=== PATIENT | male | born 1985 | race Caucasian/White ===

== ENCOUNTER 2018-01-17 18:02 | Emergency (ER) | payer BC, SELFPAY ==
--- OUTSIDE RECORDS SUMMARY | 2018-01-17 18:03 | XMS REPORT | Encounter Summary ---
:1985 Author Reason for Visit Medical Complaint Instructions 1. Influenza-like symptoms Bromfed DM 2 mg-30 mg-10 mg/5 mL syrup rapid flu (A+B) Medrol (Jemal) 4 mg tablets in a dose pack 2. Pain in throat sore throat: care instructions rapid strep group A, throat 3. Body mass index 30+ - obesity Discussion Note Pt is in NAD; Verbalizes understanding of all instructions with no questions at this time. Plan of Care Patient Instructions Take fluticasone (flonase) as needed for congestion. [place] Var[place] one spray in each nostril twice a day. Take a warm, steamy shower, blow your nose thereafter, and spray in each nostril. Tilt your head up for about 10 seconds and breath through your mouth. Do not sniff or snort the medication in or else the medication will go to your throat and not be absorbed appropriately. Take Bromfed DM for cough as dire cted. Alternate with Ibuprofen and acetaminophen every 4hrs as needed for pain/ fever/headache. Take steroid taper as directed and with food to avoid heartburn. Proper hydration and rest. Return to work/ school if free of fever for 24-hrs. Do not share any utensils/cups, no kissing , recommend hand washing after coughing/sneezing/blowing nose and cover face when you do so. Take medications as prescribed. Follow up with your PCP within 2-3 days if symptoms worsen as discussed. Reminders Provider Appointments None recorded. Lab Rapid Flu 09/16/2017 [facility] (A+B) Rapid Strep 09/16/2017 [facility] Group a, Throat Referral None recorded. Procedures None recorded. Surgeries None recorded. Imaging None recorded. Medications Name Start Date Bromfed DM 2 mg-30 mg-10 mg/5 mL syrup Take 10 mL every 4-6 hours by oral route as needed for 6 days. Medrol (Jemal) 4 mg tablets in a dose pack Take PO as directed Take with food Medications Administered None recorded. Vitals Height Weight BMI Blood Pressure 5 ft 9 in 241 lbs 35.6 kg/m2 102/70 mm[Hg] Lab Results Date Name Specimen Result Interpretation Description Value Range Status Address Rapid Strep Result negative [facility]: Group a, 9 [place] [facility] Swab Location Left and Right [facility] Rapid Flu Influenza a negative [facility]: (A+B) 9 [facility] Influenza B negative [facility]: 9 [facility] Allergies Code Code System Name Reaction Severity Status Onset NKDA Problems Name Status Onset Date Source Hyperlipidemia Active 09/16/2017 Body Mass Index 30+ - Obesity Active 09/16/2017 Pain in Throat Active 09/16/2017 Influenza-like Symptoms Active 09/16/2017 Procedures Date Name Performed by Tonsillectomy Information not available Vaccine List Vaccine Type influenza, unspecified formulation 03/25/2017 Tdap 06/25/2015 Social History Smoking Status Never Smoker Past Encounters 09/16/2017 Influenza-like Symptoms; Pain in Throat; Body Mass Index 30+ - Obesity Cherelle Avina, [facility]: [address] [place] [address], Ph. History of Present Illness [id number] Reported By: Patient HPI: Quality: cannot identify. Duration: 7 days. Severity: subjective temperature. Context: no ill contacts, no tick/insect bites, no recent travel, no new medications. Associated Symptoms: no fever/chills, no headache, no muscle aches, no rash, no lethargy, cough, nasal passage blockage (stuffiness), nasal discharge; sore throat, chest congestion, body aches, and feeling feverish. Modifying Factors nothing gives relief Review of Systems: ROS as noted in the HPI Review of Systems Basic Reported By: Patient Physical Exam Adult Basic, Adult Male Complete Reported By: Patient Constitutional: General Appearance: obese. Level of Distress: NAD. Ambulation: ambulating normally Psychiatric: Mental Status: active and alert. Orientation: to time, to place, to person Eyes: Lids and Conjunctivae: non-injected, no discharge, no pallor. Pupils: PERRLA. Corneas: grossly intact. EOM: EOMI. Lens: clear. Vision: peripheral vision grossly intact Irh-Jzoh-Ixggw-Throat: Ears: no lesions on external ear, no outer ear tenderness, EACs clear, TMs clear. Hearing: no hearing loss. Nose: no lesions on external nose, nares patent, no septal deviation, nasal passages clear, no sinus tenderness, nasal discharge--rhinorrhea, post nasal drip; B/L NTs pink and edematous. Lips, Teeth, and Gums: no mouth or lip ulcers, no bleeding gums, normal dentition. Oropharynx: moist mucous membranes, no erythema, no exudates, tonsils absent Neck: Neck: supple. Lymph Nodes: no cervical LAD Lungs: Respiratory effort: no dyspnea, no tachypnea, no use of accessory muscles, no intercostal retractions. Auscultation: breath sounds normal, good air movement Cardiovascular: Heart Auscultation: RRR, no murmurs Neurologic: Gait and Station: normal gait, normal station. Cranial Nerves: grossly intact
--- OUTSIDE RECORDS SUMMARY | 2018-01-17 18:03 | XMS REPORT | Continuity of Care Document ---
:1985 Author Organization Interface Problems Problem Status Onset Classification Date Comments Source Date Reported Body mass index 09/17/19 Diagnosis 09/16/2017 [facility] 30+ - obesity 18 Pain in throat 09/17/19 Diagnosis 09/16/2017 [facility] 18 Influenza-like 09/17/19 Diagnosis 09/16/2017 [facility] symptoms 18 Hyperlipidemia 09/17/19 Problem 09/16/2017 [facility] 18 Body Mass Index 09/17/19 Problem 09/16/2017 [facility] 30+ - Obesity 18 Pain in Throat 09/17/19 Problem 09/16/2017 [facility] 18 Influenza-like 09/17/19 Problem 09/16/2017 [facility] Symptoms 18 Medications Medication Details Route Status Patient Ordering Order Source Instructions Provider Date Brompheniramine Bromfed Active [facility] Maleate 0.4 MG/ML DM 2 / Dextromethorphan mg-30 Hydrobromide 2 mg-10 MG/ML / mg/5 mL Pseudoephedrine syrup Hydrochloride 6 Take 10 MG/ML Oral mL every Solution [Bromfed 4-6 hours DM] by oral route as needed for 6 days. Allergies, Adverse Reactions, Alerts Substance Category Reaction Severity Reaction Status Date Comments Source type Reported Immunizations Immunization Date Given Site Status Last Comments Source Updated influenza, 03/25/2017 completed [facility] unspecified formulation Tdap 06/25/2015 completed [facility] Results Order Results Value Reference Date Interpretation Comments Source Name Range RESULT negative 09/16/ [facility] 2018 SWAB Left and 09/16/ [facility] LOCATION Right 2018 tonsillar pillars Influenza A negative 09/16/ [facility] 2017 Influenza B negative 09/16/ [facility] 2017 Vital Signs Vital Sign Value Date Comments Source Diastolic (mm Hg) 70 09/16/2017 [facility] Height 69 09/16/2017 [facility] Systolic (mm Hg) 102 09/16/2017 [facility] Weight 241 09/16/2017 [facility] Encounters Location Location Encounter Encounter Reason Attending ADM DC Status Source Details Type Number For Provider Date Date Visit NHI Kaela Cherelle [id number] Cherelle 09/16 [facility] Avina, [id number] Fabrice - SYSTEM ADMINISTRATION MANAGER-C: [id number] [id number], [place] [address] , Ph. Procedures Procedure Code Date Perfomer Comments Source Tonsillectomy [facility]
[2018-01-17] MEDS ORDERED: ONDANSETRON 4 MG/2 ML VIAL ONE (18:52)
[2018-01-17] MEDS ORDERED: NA CHLORIDE 0.9% 1,000 ML ONE (18:52)
[2018-01-17] MEDS ORDERED: KETOROLAC 30 MG/ML INJ ONE (18:52)
--- NOTE | 2018-01-17 19:03 | RAD REPORT ---
EXAM DESCRIPTION: CT - Stone Protocol - 01/17/2018 6:55 pm CLINICAL HISTORY: Flank pain. Left flank pain COMPARISON: No comparisons TECHNIQUE: Axial images were obtained without oral or IV contrast. Lack of contrast limits solid org an and vascular assessment. The [id number] spans the entirety of the system partially obscuring uppermost abdomen and lung bases. Coronal reformatted images were obtained and reviewed. All CT scans are performed using dose optimization technique as appropriate and may include automated exposure control or mA/KV adjustment according to patient size. FINDINGS: The lower lung sandoval are clear. Imaged portions of the liver and spleen show no suspicious findings on non-contrast imaging. The panc reas and adrenal glands are normal. No pathologic lymphadenopathy in the abdomen or pelvis. 2 mm stone is present at the left UPJ with mild left hydronephrosis. No bowel obstruction, free air, free fluid or abscess. Normal appendix noted. No significant bony abnormality. IMPRESSION: 2 mm stone noted left UPJ with mild left hydronephrosis.
[2018-01-17 19:17] LABS: Absolute Lymphocytes (CBC) 2.1 K/uL (0.7-4.9); Absolute Neutrophil 9.4 K/uL (1.8-8.0); Basophils % 0.3 % (0-1.3); Hematocrit 43.5 % (39.6-49.0); Lymphocytes % 16.5 % (15.3-44.8); MCH 29.4 pg (27.0-35.0); MCV 88.2 fL (80-100); MPV 9.7 fL (7.6-11.3); Monocytes % 7.6 % (3.3-12.3); RBC Red Blood Cell Count 4.93 M/uL (4.33-5.43)
[2018-01-17 19:34] LABS: ALT/SGPT 19 U/L (12-78); AST/SGOT 11 U/L (15-37); Albumin 3.7 g/dL (3.4-5.0); Alkaline Phosphatase 48 U/L (45-117); BUN Blood Urea Nitrogen 13 mg/dL (7-18); Bicarbonate 26 mmol/L (21-32); Bilirubin Direct 0.1 mg/dL (0-0.2); Bilirubin Total 0.5 mg/dL (0.2-1.0); Glucose Level 81 mg/dL (74-106); Lipase 71 U/L (73-393); Potassium 3.6 mmol/L (3.5-5.1); Protein, Total 6.7 g/dL (6.4-8.2); Sodium Level 143 mmol/L (136-145)
--- NOTE | 2018-01-17 20:25 | ER ---
Nurse's Notes [facility] Name: Caio Hoskins Age: 32 yrs Sex: Male : 1985 Arrival Date: 01/17/2018 Time: 18:09 Bed 28 Private MD: Diagnosis: Acute Left Side Ureteral Colic Presentation: 01/17 18:09 Presenting complaint: EMS states: he was in the bathroom at work and was feeling mg2 nauseous with pain in the left flank. he only urinated once today. He said he has several histories of heat exhaustion for the past couple of years. 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 Transition of care: patient was not received from another setting of care. Onset of symptoms was January 17, 2018. Risk Assessment: Do you want to hurt yourself or someone else? Patient reports no desire to harm self or others. Initial Sepsis Screen: Does the patient meet any 2 criteria? No. Patient's initial sepsis screen is negative. Does the patient have a suspected source of infection? No. Patient's initial sepsis screen is negative. Care prior to arrival: iv fluid. 18:09 Method Of Arrival: EMS mg2 18:09 Acuity: TUNDE 3 mg2 Historical: - Allergies: 18:14 Sulfa (Sulfonamide Antibiotics); mg2 - Home Meds: 18:14 None [Active]; mg2 - PMHx: 18:14 heat exhaustion/dehydration; mg2 - PSHx: 18:14 Tonsillectomy; mg2 - Immunization history:: Flu vaccine is not up to date. - Social history:: Smoking status: Patient/guardian denies using tobacco, Patient uses Patient/guardian denies using alcohol, street drugs, IV drugs. - Ebola Screening: : No symptoms or risks identified at this time. Screenin:15 Abuse screen: Denies threats or abuse. Denies injuries from another. Nutritional mg2 screening: No deficits noted. Tuberculosis screening: No symptoms or risk factors identified. Fall Risk IV access (20 points). Assessment: 19:12 General: Appears in no apparent distress. comfortable, Behavior is calm, cooperative. mg2 Pain: Complains of pain in left low back Pain does not radiate. Pain currently is 5 out of 10 on a pain scale. Quality of pain is described as aching, Pain began gradually, 2 hours ago. Is intermittent. Neuro: Level of Consciousness is awake, alert, obeys commands, Oriented to person, place, time, situation. Cardiovascular: Capillary refill < 3 seconds Patient's skin is warm and dry. Respiratory: Airway is patent Respiratory effort is even, unlabored, Respiratory pattern is regular, symmetrical. GI: Reports nausea. EENT: No signs and/or symptoms were reported regarding the EENT system. Derm: Skin is intact, Skin is pink, warm \T\ dry. normal. Musculoskeletal: Circulation, motion, and sensation intact. Vital Signs: 18:14 BP 139 / 98; Pulse 78; Resp 18; Temp 98.6(O); Pulse Ox 100% ; Weight 106.59 kg; Height mg2 5 ft. 9 in. (175.26 cm); Pain 5/10; 19:14 BP 131 / 88; Pulse 65; Resp 18; Pulse Ox 100% ; Pain 5/10; mg2 19:46 BP 127 / 77; Pulse 60; Resp 18; Pulse Ox 100% ; mg2 18:14 Body Mass Index 34.70 (106.59 kg, 175.26 cm) mg2 ED Course: 18:09 Patient arrived in ED. mg2 18:10 Swapnil Gilmore MD is Attending Physician. kdr 18:13 Triage completed. mg2 18:15 Arm band placed on. mg2 18:15 Maintain EMS IV. Dressing intact. Good blood return noted. Site clean \T\ dry. Gauge \T\ mg 2 site: 20 right hand. 18:22 Dylon Celestin, RN is Primary Nurse. mg2 18:[address] vr 18:54 CT Stone Protocol In Process Unspecified. EDMS 18:54 CT completed. Patient tolerated procedure well. Patient moved back from CT. vr 19:13 Patient has correct armband on for positive identification. Placed in gown. Bed in low mg2 position. Side rails up X 1. Door closed. 19:27 Attending Physician role handed off by Swapnil Gilmore MD wa 19:27 Luis Angel Lenz MD is Attending Physician. wa 20:23 Chiquis Loredo MD is Referral Physician. wa 20:49 No provider procedures requiring assistance completed. IV discontinued, intact, mg2 bleeding controlled, No redness/swelling at site. Pressure dressing applied. Administered Medications: 19:11 Drug: TORadol 30 mg Route: IVP; Site: right hand; mg2 19:47 Follow up: Response: No adverse reaction; Pain is decreased mg2 19:11 Drug: Zofran 4 mg Route: IVP; Site: right hand; mg2 19:47 Follow up: Response: No adverse reaction mg2 19:11 Drug: NS 0.9% 1000 ml Route: IV; Rate: 1 bolus; Site: right hand; mg2 19:48 Follow up: Response: No adverse reaction; IV Status: Completed infusion mg2 Outcome: 20:24 Discharge ordered by . alice 20:49 Discharged to home ambulatory, with family. mg2 20:49 Condition: stable 20:49 Discharge instructions given to patient, family, Instructed on discharge instructions, follow up and referral plans. medication usage, Demonstrated understanding of instructions, follow-up care, medications, Prescriptions given X 3. 20:51 Patient left the ED. mg2 Signatures: Dispatcher [employer] EDMS Swapnil Gilmore MD MD kdr Davis, Victoria vr Appiah, William, MD MD wa Gardose, Michele RN RN mg2 Corrections: (The following items were deleted from the chart) 19:17 19:14 Pulse 65bpm; Resp 18bpm; Pulse Ox 100%; Pain 5/10; mg2 mg2
--- NOTE | 2018-01-17 20:25 | EDPHYS ---
Physician Documentation [facility] Name: Caio Hoskins Age: 32 yrs Sex: Male : 1985 Arrival Date: 01/17/2018 Time: 18:09 Bed 28 Private MD: ED Physician Luis Angel Lenz HPI: 01/17 18:20 This 32 yrs old Male presents to ER via EMS with complaints of left flank kdr pain. 18:20 The patient complains of pain in the left low back. The pain radiates to the left low kdr back. Onset: The symptoms/episode began/occurred suddenly, just prior to arrival. Modifying factors: The symptoms are alleviated by nothing. the symptoms are aggravated by nothing. palpation/percussion. Associated signs and symptoms: Pertinent positives: nausea, vomiting. Severity of pain: At its worst the pain was incapacitating in the emergency department the pain has improved moderately. 19:39 The patient has not experienced similar symptoms in the past. The patient has not wa recently seen a physician. Historical: - Allergies: 18:14 Sulfa (Sulfonamide Antibiotics); mg2 - Home Meds: 18:14 None [Active]; mg2 - PMHx: 18:14 heat exhaustion/dehydration; mg2 - PSHx: 18:14 Tonsillectomy; mg2 - Immunization history:: Flu vaccine is not up to date. - Social history:: Smoking status: Patient/guardian denies using tobacco, Patient uses Patient/guardian denies using alcohol, street drugs, IV drugs. - Ebola Screening: : No symptoms or risks identified at this time. ROS: 18:20 Constitutional: Negative for fever, chills, and weight loss, Eyes: Negative for injury, kdr pain, redness, and discharge, ENT: Negative for injury, pain, and discharge, Neck: Negative for injury, pain, and swelling, Cardiovascular: Negative for chest pain, palpitations, and edema, Respiratory: Negative for shortness of breath, cough, wheezing, and pleuritic chest pain, Back: Negative for injury and pain, : Negative for injury, bleeding, discharge, and swelling, MS/Extremity: Negative for injury and deformity, Skin: Negative for injury, rash, and discoloration, Neuro: Negative for headache, weakness, numbness, tingling, and seizure activity. Psych: Negative for depression, anxiety, suicide ideation, homicidal ideation, and hallucinations, Allergy/Immunology: Negative for hives, rash, and allergies, Endocrine: Negative for neck swelling, polydipsia, polyuria, polyphagia, and marked weight changes, Hematologic/Lymphatic: Negative for swollen nodes, abnormal bleeding, and unusual bruising. 18:20 Abdomen/GI: Positive for abdominal pain, nausea and vomiting, left flank pain. Exam: 18:20 Constitutional: This is a well developed, well nourished patient who is awake, alert, kdr and in no acute distress. Head/Face: Normocephalic, atraumatic. Eyes: Pupils equal round and reactive to light, extra-ocular motions intact. Lids and lashes normal. Conjunctiva and sclera are non-icteric and not injected. Cornea within normal limits. Periorbital areas with no swelling, redness, or edema. Neck: Trachea midline, no thyromegaly or masses palpated, and no cervical lymphadenopathy. Supple, full range of motion without nuchal rigidity, or vertebral point tenderness. No Meningismus. Chest/axilla: Normal chest wall appearance and motion. Nontender with no deformity. No lesions are appreciated. Cardiovascular: Regular rate and rhythm with a normal S1 and S2. No gallops, murmurs, or rubs. Normal PMI, no JVD. No pulse deficits. Respiratory: Lungs have equal breath sounds bilaterally, clear to auscultation and percussion. No rales, rhonchi or wheezes noted. No increased work of breathing, no retractions or nasal flaring. Abdomen/GI: Soft, non-tender, with normal bowel sounds. No distension or tympany. No guarding or rebound. No evidence of tenderness throughout. Skin: Warm, dry with normal turgor. Normal color with no rashes, no lesions, and no evidence of cellulitis. MS/ Extremity: Pulses equal, no cyanosis. Neurovascular intact. Full, normal range of motion. Neuro: Awake and alert, GCS 15, oriented to person, place, time, and situation. Cranial nerves II-XII grossly intact. Motor strength 5/5 in all extremities. Sensory grossly intact. Cerebellar exam normal. Normal gait. Psych: Awake, alert, with orientation to person, place and time. Behavior, mood, and affect are within normal limits. 18:20 Back: pain, that is mild, ROM is normal, normal spinal alignment noted, CVA tenderness, that is mild, is noted on the left. Vital Signs: 18:14 BP 139 / 98; Pulse 78; Resp 18; Temp 98.6(O); Pulse Ox 100% ; Weight 106.59 kg; Height mg2 5 ft. 9 in. (175.26 cm); Pain 5/10; 19:14 BP 131 / 88; Pulse 65; Resp 18; Pulse Ox 100% ; Pain 5/10; mg2 19:46 BP 127 / 77; Pulse 60; Resp 18; Pulse Ox 100% ; mg2 18:14 Body Mass Index 34.70 (106.59 kg, 175.26 cm) mg2 MDM: 18:20 Data reviewed: vital signs, nurses notes, lab test result(s), radiologic studies. [facility] 19:39 Test interpretation: by ED physician or midlevel provider: CT abd/pelvis: noted for 2 wa mm stone at L UPJ with assoc hydro. Response to treatment: the patient's symptoms have markedly improved after treatment. 20:21 Test interpretation: by ED physician or midlevel provider: wbc elevated at 12.5 UA wa noted for blood. ED course: pain improved. will d/c with close f/u. 20:24 Patient medically screened. nd 01/17 18:20 Order name: Basic Metabolic Panel; Complete Time: 20:06 [facility] 01/17 18:20 Order name: CBC with Diff; Complete Time: 20:20 [facility] 01/17 18:20 Order name: Creatinine for Radiology; Complete Time: 20:20 [facility] 01/17 18:20 Order name: Hepatic Function; Complete Time: 20:20 [facility] 01/17 18:20 Order name: Lipase; Complete Time: 20:20 [facility] 01/17 18:20 Order name: Urine Microscopic Only [facility] 01/17 18:20 Order name: CT Stone Protocol; Complete Time: 19:31 [facility] 01/17 18:20 Order name: IV Saline Lock; Complete Time: 19:11 [facility] 01/17 18:20 Order name: Labs collected and sent; Complete Time: 19:12 [facility] 01/17 20:37 Order name: Urine Dipstick--Ancillary (enter results) fc Administered Medications: 19:11 Drug: TORadol 30 mg Route: IVP; Site: right hand; mg2 19:47 Follow up: Response: No adverse reaction; Pain is decreased mg2 19:11 Drug: Zofran 4 mg Route: IVP; Site: right hand; mg2 19:47 Follow up: Response: No adverse reaction mg2 19:11 Drug: NS 0.9% 1000 ml Route: IV; Rate: 1 bolus; Site: right hand; mg2 19:48 Follow up: Response: No adverse reaction; IV Status: Completed infusion mg2 Disposition: 01/17/18 20:24 Discharged to Home. Impression: Acute Left Side Ureteral Colic. - Condition is Stable. - Prescriptions for ketorolac 10 mg Oral tablet - take 1 tablet by ORAL route every 8 hours not to exceed 40 mg in 24hrs; 15 tablet. Zofran 4 mg Oral Tablet - take 1 tablet by ORAL route every 12 hours As needed; 6 tablet. Flomax 0.4 mg Oral Capsule, Sust. Release 24 hr - take 1 capsule by ORAL route once daily for 7 days 1/2 hour following the same meal each day; 7 capsule. - Medication Reconciliation Form, Thank You Letter, Antibiotic Education, Prescription Opioid Use, Work release form form. - Follow up: Chiquis Loredo MD; When: 2 - 3 days; Reason: Recheck today's complaints. - Problem is new. - Symptoms have improved. - Notes: take medicines as prescribed. follow up with the urologist within 1 week if pain persists Signatures: Dispatcher [employer] EDMS Swapnil Gilmore MD MD [facility] Luis Angel Lenz MD MD wa Gardose, Michele, RN RN mg2 Corrections: (The following items were deleted from the chart) 20:51 20:24 01/17/2018 20:24 Discharged to Home. Impression: Acute Left Side Ureteral Colic. mg2 Condition is Stable. Forms are Medication Reconciliation Form, Thank You Letter, Antibiotic Education, Prescription Opioid Use. Follow up: Chiquis Loredo; When: 2 - 3 days; Reason: Recheck today's complaints. Problem is new. Symptoms have improved. wa
[2018-01-17 20:47] LABS: Urine Blood 3+ (NEG); Urine Glucose NEGATIVE (NEG); Urine Protein 2+ (NEG); Urine Specific Gravity >1.030 (1.005-1.030)
[2018-01-17 20:54] LABS: Urine Bacteria <20 /HPF (NONE SEEN); Urine Culture Reflex Order NOT NEEDED; Urine RBC TNTC /HPF (NONE SEEN)
== END 2018-01-17 20:51 | disposition home or self-care (01) ==
LOC: ER 18:02
DX: N23 Unspecified renal colic (principal); Z88.2 Allergy status to sulfonamides
CPT/HCPCS: 36415; 74176; 76377; 80048; 80076; 81003; 81015; 83690; 85025; 96361; 96374; 96375; 99284; J2405; J7030